=== PATIENT | male | born 1955 | race Caucasian/White ===

== ENCOUNTER 2020-06-12 08:11 | Outpatient (CLI) | payer SELFPAY ==
[2020-06-12] VITALS (10 sets, daily range): BP systolic 135–165; BP diastolic 79–91
[~2020-06-12] VITALS: Ht 167.6 cm; Wt 68.0 kg
[~2020-06-12 08:11] MED LIST: ASPI-630 PO; ASPI325T8 PO; CANA300T PO; LOSA1TAB2 PO; MELO7.5T5 PO; SITA1TAB11 PO
[2020-06-12] MEDS ORDERED: HYDR50TA6 PO (08:33)
[2020-06-12] MEDS ORDERED: FURO20TA3 PO (08:33)
[2020-06-12 09:01] LABS: BASO % 1 % (0-3); EOS # 0.1 x10^3/uL (0.0-0.7); EOS % 2 % (0-3); HEMATOCRIT 37.9 % (39.0-53.0); HEMOGLOBIN 12.8 g/dL (13.0-17.5); LYMPH # 0.8 x10^3/uL (1.0-4.8); LYMPH % 21 % (24-48); MEAN CORPUSCULAR HEMOGLOBIN 33 pg (25-35); MEAN CORPUSCULAR HGB CONC 34 g/dL (31-37); MEAN CORPUSCULAR VOLUME 97 fL (79-100); MONO # 0.4 x10^3/uL (0.0-1.1); MONO % 10 % (0-9); NEUT # 2.7 x10^3/uL (1.8-7.7); NEUT % 67 % (31-73); PLATELET COUNT 232 x10^3/uL (140-400); RED BLOOD COUNT 3.92 x10^6/uL (4.30-5.70); RED CELL DISTRIBUTION WIDTH 15.4 % (11.5-14.5)
[2020-06-12 09:09] LABS: CALCIUM 8.8 mg/dL (8.5-10.1); CREATININE 0.8 mg/dL (0.7-1.3); PROTHROMBIN TIME PATIENT 12.8 SEC (11.7-14.0)
[2020-06-12 09:14] LABS: POTASSIUM 4.6 mmol/L (3.5-5.1)
[2020-06-12] MEDS ORDERED: LIDOCAINE WITH 8.4% SOD BICARB 3 ML DISP.SYRIN. ONE (09:34)
[2020-06-12] MEDS ORDERED: LIDOCAINE WITH 8.4% SOD BICARB 3 ML DISP.SYRIN. INJ ONE (09:45)
[2020-06-12] MEDS ORDERED: ALBUMIN HUMAN 25% 100 ML IV ONE ×4 (10:08→10:45)
--- NOTE | 2020-06-12 11:45 | NUR ---
Discharge Note: LONDON CESAR Discharge instructions and discharge home medications reviewed with Patient and a copy given. All questions have been answered and understanding verbalized. Dressing site remains clean and dry. The following instructions and handouts were given: paracentesis, liver disease diet Discontinued lines and drains: Peripheral IV intact. Patient discharged to Home or Self Care with Family Member via Ambulated JS RN Addendum: 06/12/20 at 1147 by HEAVEN MEZA RN Amended: Links added.
--- NOTE | 2020-06-12 13:23 | RAD ---
Ultrasound-guided paracentesis 06/12/2020 11:20 AM Procedure: The risks and benefits of the procedure were discussed the patient. Informed consent was obtained. A timeout procedure was performed. Sonographic evaluation of the abdomen was performed demonstrating ascites . The right lower quadrant was prepped and draped using maximum sterile barrier technique. 1% lidocaine without epinephrine was administered for local anesthesia. Real-time ultrasonographic guidance was used in passing a 5 Armenian Yueh catheter into the fluid collection. 10 L of serous ascites was removed. The catheter was removed and pressure held to achieve hemostasis. A sterile dressing was applied. Impression: Successful ultrasound-guided paracentesis
== END 2020-06-12 11:40 | disposition home or self-care (01) ==
LOC: INTRAD 08:11
PROVIDERS: ATTEND Internal Medicine Gastroenterology
DX: R18.8 Other ascites (principal); F17.210 Nicotine dependence, cigarettes, uncomplicated; Z79.82 Long term (current) use of aspirin; Z79.899 Other long term (current) drug therapy
CPT/HCPCS: 36415; 49083; 80048; 85025; 85610; C1892; J3490; P9046

== ENCOUNTER 2020-07-11 06:45 | Outpatient (CLI) | payer SELFPAY ==
[2020-07-11] VITALS (8 sets, daily range): BP systolic 109–149; BP diastolic 62–94
[~2020-07-11] VITALS: Ht 167.6 cm; Wt 65.8 kg
[~2020-07-11 06:45] MED LIST changes: +FURO20TA3 PO; +HYDR50TA6 PO
[2020-07-11] MEDS ORDERED: ASPI-886 PO (07:23)
[2020-07-11] MEDS ORDERED: ALBUMIN HUMAN 25% 100 ML IV ONE ×6 (07:45→09:15)
[2020-07-11] MEDS ORDERED: LIDOCAINE WITH 8.4% SOD BICARB 3 ML DISP.SYRIN. ONE (07:49)
[2020-07-11] MEDS ORDERED: LIDOCAINE WITH 8.4% SOD BICARB 3 ML DISP.SYRIN. INJ ONE (08:45)
--- NOTE | 2020-07-11 09:17 | NUR ---
drainage has a cloudy yellow appearance Addendum: 07/11/20 at 0918 by CALLI JACINTO RN Amended: Links added.
--- NOTE | 2020-07-11 10:25 | NUR ---
Discharge Note: LONDON CESAR Discharge instructions and discharge home medications reviewed with Patient and a copy given. All questions have been answered and understanding verbalized. Patient ate breakfast with no difficulties. The following instructions and handouts were given: Paracentesis. Discontinued lines and drains: Left forearm, dressing clean dry intact. Patient discharged to home with son via ambulation to private vehicle.
--- NOTE | 2020-07-11 13:37 | RAD ---
Procedure: Ultrasound guided paracentesis Clinical Indication: Adult male with recurrent abdominal ascites Sedation: Local anesthesia only Antibiotics: None Fluoro Time: None Contrast: Not applicable Sterility: The procedure was performed in its entirety using appropriate elements of sterile technique. Consent: The procedure was explained in its entirety to the patient or the patients designated customer service representative teacher by a member of the treatment team, including a discussion of the risks, benefits and commonly accepted alternatives to the procedure, as well as the expected consequences of no therapy whatsoever. Discussion of the risks included, but was not limited to, those that are most frequent and those that are rare but possibly severe or life-threatening, as well as the possibility of unforeseen complications. Technique and Findings: Following informed consent, the patient was prepped and draped in the usual sterile fashion. Ultrasound interrogation of the abdomen revealed abdominal ascites. A hard copy ultrasound image was recorded. 1% Lidocaine was used to achieve local anesthesia over the area of interest, and a 6 Serbian Jekr-A-Hvxgfvwt catheter was advanced into the peritoneal cavity under ultrasound guidance. 9500 cc of thin yellow ascites was then withdrawn. The catheter was removed and hemostasis was achieved with manual compression. Complications: No immediate Impression: 1. Ultrasound-guided paracentesis as described
== END 2020-07-11 10:25 | disposition home or self-care (01) ==
LOC: INTRAD 06:45
PROVIDERS: ATTEND Internal Medicine Gastroenterology
DX: R18.8 Other ascites (principal); K74.60 Unspecified cirrhosis of liver; F17.210 Nicotine dependence, cigarettes, uncomplicated; Z79.82 Long term (current) use of aspirin; Z79.899 Other long term (current) drug therapy
CPT/HCPCS: 49083; C1892; J3490; P9046

== ENCOUNTER 2020-07-27 06:48 | Outpatient (CLI) | payer OTHER ==
[2020-07-27] VITALS (9 sets, daily range): BP systolic 116–145; BP diastolic 73–86
[~2020-07-27] VITALS: Ht 167.6 cm; Wt 62.6 kg
[~2020-07-27 06:48] MED LIST changes: +ASPI-886 PO
[2020-07-27 07:51] LABS: BASO # 0.1 x10^3/uL (0.0-0.2); BASO % 1 % (0-3); EOS # 0.1 x10^3/uL (0.0-0.7); EOS % 1 % (0-3); HEMATOCRIT 42.4 % (39.0-53.0); HEMOGLOBIN 14.7 g/dL (13.0-17.5); LYMPH # 0.9 x10^3/uL (1.0-4.8); LYMPH % 16 % (24-48); MEAN CORPUSCULAR HEMOGLOBIN 34 pg (25-35); MEAN CORPUSCULAR HGB CONC 35 g/dL (31-37); MEAN CORPUSCULAR VOLUME 98 fL (79-100); MONO # 0.5 x10^3/uL (0.0-1.1); MONO % 10 % (0-9); NEUT # 4.2 x10^3/uL (1.8-7.7); NEUT % 73 % (31-73); PLATELET COUNT 248 x10^3/uL (140-400); RED BLOOD COUNT 4.34 x10^6/uL (4.30-5.70); RED CELL DISTRIBUTION WIDTH 14.5 % (11.5-14.5); WHITE BLOOD COUNT 5.8 x10^3/uL (4.0-11.0)
[2020-07-27 08:14] LABS: PROTHROMBIN TIME PATIENT 13.1 SEC (11.7-14.0)
[2020-07-27] MEDS ORDERED: LIDOCAINE WITH 8.4% SOD BICARB 3 ML DISP.SYRIN. ONE (08:21)
[2020-07-27] MEDS ORDERED: LIDOCAINE WITH 8.4% SOD BICARB 3 ML DISP.SYRIN. INJ ONE (08:30)
[2020-07-27] MEDS ORDERED: ALBUMIN HUMAN 25% 100 ML IV ONE ×4 (09:00→10:15)
--- NOTE | 2020-07-27 09:42 | RAD ---
Ultrasound-guided paracentesis 07/27/2020 7:39 AM Procedure: The risks and benefits of the procedure were discussed the patient. Informed consent was obtained. A timeout procedure was performed. Sonographic evaluation of the abdomen was performed demonstrating ascites . The right lower quadrant was prepped and draped using maximum sterile barrier technique. 1% lidocaine without epinephrine was administered for local anesthesia. Real-time ultrasonographic guidance was used in passing a 5 Yoruba Yueh catheter into the fluid collection. 10 L of serous ascites was removed. The catheter was removed and pressure held to achieve hemostasis. A sterile dressing was applied. Impression: Successful ultrasound-guided paracentesis
[2020-07-27] MEDS ORDERED: ALBUMIN HUMAN 25% 100 ML IV SCH (11:00)
== END 2020-07-27 10:30 | disposition home or self-care (01) ==
LOC: INTRAD 06:48
PROVIDERS: ATTEND Internal Medicine Gastroenterology
DX: R18.8 Other ascites (principal); K74.60 Unspecified cirrhosis of liver; F17.210 Nicotine dependence, cigarettes, uncomplicated; Z79.82 Long term (current) use of aspirin
CPT/HCPCS: 36415; 49083; 85025; 85610; 85730; C1892; J3490; P9046

== ENCOUNTER 2020-08-13 07:14 | Outpatient (CLI) | payer OTHER ==
[2020-08-13] VITALS (10 sets, daily range): BP systolic 106–141; BP diastolic 70–89
[~2020-08-13] VITALS: Ht 167.6 cm; Wt 63.5 kg
[2020-08-13] MEDS ORDERED: LIDOCAINE WITH 8.4% SOD BICARB 3 ML DISP.SYRIN. ONE (08:41)
[2020-08-13] MEDS ORDERED: LIDOCAINE WITH 8.4% SOD BICARB 3 ML DISP.SYRIN. IJ ONE (09:00)
[2020-08-13] MEDS ORDERED: ALBUMIN HUMAN 25% 100 ML IV ONE ×6 (09:06→09:45)
--- NOTE | 2020-08-13 10:48 | NUR ---
Discharge Note: LONDON CESAR Discharge instructions and discharge home medications reviewed with Patient and (messi); and a copy given. All questions have been answered and understanding verbalized. The following instructions and handouts were given: Paracentesis Discontinued lines and drains: Left FA IV dc'd and tip intact. Patient discharged to home with via personal vehicle.
--- NOTE | 2020-08-13 15:28 | RAD ---
Procedure: Ultrasound guided paracentesis Clinical Indication: Adult male with recurrent abdominal ascites Sedation: Local anesthesia only Antibiotics: None Fluoro Time: None Contrast: Not applicable Sterility: The procedure was performed in its entirety using appropriate elements of sterile technique. Consent: The procedure was explained in its entirety to the patient or the patients designated call center support representative by a member of the treatment team, including a discussion of the risks, benefits and commonly accepted alternatives to the procedure, as well as the expected consequences of no therapy whatsoever. Discussion of the risks included, but was not limited to, those that are most frequent and those that are rare but possibly severe or life-threatening, as well as the possibility of unforeseen complications. Technique and Findings: Following informed consent, the patient was prepped and draped in the usual sterile fashion. Ultrasound interrogation of the abdomen revealed abdominal ascites. A hard copy ultrasound image was recorded. 1% Lidocaine was used to achieve local anesthesia over the area of interest, and a 6 Uzbek Oopo-H-Pwiibfer catheter was advanced into the peritoneal cavity under ultrasound guidance. 11.6 L of thin yellow ascites was then withdrawn. The catheter was removed and hemostasis was achieved with manual compression. Complications: No immediate Impression: 1. Ultrasound-guided paracentesis as described
== END 2020-08-13 10:51 | disposition home or self-care (01) ==
LOC: INTRAD 07:14
PROVIDERS: ATTEND Internal Medicine Gastroenterology
DX: R18.8 Other ascites (principal); I25.10 Atherosclerotic heart disease of native coronary artery without angina pectoris; E78.00 Pure hypercholesterolemia, unspecified; I10 Essential (primary) hypertension; J44.9 Chronic obstructive pulmonary disease, unspecified; F41.9 Anxiety disorder, unspecified; F32.9 Major depressive disorder, single episode, unspecified; K21.9 Gastro-esophageal reflux disease without esophagitis; G62.9 Polyneuropathy, unspecified; F17.210 Nicotine dependence, cigarettes, uncomplicated; Z98.890 Other specified postprocedural states; Z79.899 Other long term (current) drug therapy; Z72.89 Other problems related to lifestyle; Z79.82 Long term (current) use of aspirin
CPT/HCPCS: 49083; C1892; J3490; P9046

== ENCOUNTER 2020-08-20 07:39 | Outpatient (CLI) | payer OTHER ==
[~2020-08-20] VITALS: Ht 167.6 cm; Wt 59.0 kg
[2020-08-20] VITALS (8 sets, daily range): BP systolic 116–133; BP diastolic 68–90
[2020-08-20] MEDS ORDERED: LIDOCAINE WITH 8.4% SOD BICARB 3 ML DISP.SYRIN. ONE (08:05)
[2020-08-20] MEDS ORDERED: LIDOCAINE WITH 8.4% SOD BICARB 3 ML DISP.SYRIN. INJ ONE (08:30)
[2020-08-20] MEDS ORDERED: ALBUMIN HUMAN 25% 200 ML IV ONE (08:54)
[2020-08-20] MEDS ORDERED: ALBUMIN HUMAN 25% 100 ML IV ONE ×3 (09:00→09:06)
[2020-08-20] MEDS ORDERED: ALBUMIN HUMAN 25% 50 ML IV ONE (09:00)
--- NOTE | 2020-08-20 10:31 | NUR ---
Discharge Note: LONDON CESAR Discharge instructions and discharge home medications reviewed with Patient and and a copy given. All questions have been answered and understanding verbalized. The following instructions and handouts were given: Paracentesis Discontinued lines and drains: right FA IV dc'd and tip intact. Patient discharged to home with spouse via personal vehicle.
--- NOTE | 2020-08-21 12:26 | RAD ---
Ultrasound-guided paracentesis 08/21/2020 10:22 AM Procedure: The risks and benefits of the procedure were discussed the patient. Informed consent was obtained. A timeout procedure was performed. Sonographic evaluation of the abdomen was performed demonstrating ascites . The right lower quadrant was prepped and draped using maximum sterile barrier technique. 1% lidocaine without epinephrine was administered for local anesthesia. Real-time ultrasonographic guidance was used in passing a 5 Ugandan Yueh catheter into the fluid collection. 9 L of serous ascites was removed. The catheter was removed and pressure held to achieve hemostasis. A sterile dressing was applied. Impression: Successful ultrasound-guided paracentesis
== END 2020-08-20 10:10 | disposition home or self-care (01) ==
LOC: INTRAD 07:39
PROVIDERS: ATTEND Internal Medicine Gastroenterology
DX: R18.8 Other ascites (principal); I25.10 Atherosclerotic heart disease of native coronary artery without angina pectoris; E78.00 Pure hypercholesterolemia, unspecified; M19.90 Unspecified osteoarthritis, unspecified site; J44.9 Chronic obstructive pulmonary disease, unspecified; E11.42 Type 2 diabetes mellitus with diabetic polyneuropathy; F41.9 Anxiety disorder, unspecified; F32.9 Major depressive disorder, single episode, unspecified; K21.9 Gastro-esophageal reflux disease without esophagitis; F17.210 Nicotine dependence, cigarettes, uncomplicated; Z79.82 Long term (current) use of aspirin; Z79.84 Long term (current) use of oral hypoglycemic drugs; Z79.899 Other long term (current) drug therapy; Z98.890 Other specified postprocedural states; Z72.89 Other problems related to lifestyle
CPT/HCPCS: 49083; C1892; J3490; P9046

== ENCOUNTER 2020-08-27 07:30 | Outpatient (CLI) | payer OTHER ==
[~2020-08-27] VITALS: Ht 167.6 cm; Wt 59.4 kg
[2020-08-27 07:46] VITALS: BP 147/91
[2020-08-27] MEDS ORDERED: LIDOCAINE WITH 8.4% SOD BICARB 3 ML DISP.SYRIN. ONE (08:25)
[2020-08-27 08:40] VITALS: BP 121/74
[2020-08-27] MEDS ORDERED: LIDOCAINE WITH 8.4% SOD BICARB 3 ML DISP.SYRIN. INJ ONE (08:45)
[2020-08-27] MEDS ORDERED: ALBUMIN HUMAN 25% 200 ML IV ONE (08:54)
[2020-08-27 08:59] VITALS: BP 104/79
[2020-08-27] MEDS ORDERED: ALBUMIN HUMAN 25% 100 ML IV ONE ×2 (09:00)
[2020-08-27 09:10] VITALS: BP 95/68
[2020-08-27 09:30] VITALS: BP 140/78
--- NOTE | 2020-08-27 10:17 | NUR ---
pt discharged to home with family in private vehicle. PIV dcd.
--- NOTE | 2020-08-27 15:31 | RAD ---
Ultrasound-guided paracentesis 08/27/2020 1:27 PM Procedure: The risks and benefits of the procedure were discussed the patient. Informed consent was obtained. A timeout procedure was performed. Sonographic evaluation of the abdomen was performed demonstrating ascites . The right lower quadrant was prepped and draped using maximum sterile barrier technique. 1% lidocaine without epinephrine was administered for local anesthesia. Real-time ultrasonographic guidance was used in passing a 5 Luxembourgish Yueh catheter into the fluid collection. 8.6 L of serous ascites was removed. The catheter was removed and pressure held to achieve hemostasis. A sterile dressing was applied. Impression: Successful ultrasound-guided paracentesis
== END 2020-08-27 10:18 | disposition home or self-care (01) ==
LOC: INTRAD 07:30
PROVIDERS: ATTEND Internal Medicine Gastroenterology
DX: R18.8 Other ascites (principal); I10 Essential (primary) hypertension; E78.00 Pure hypercholesterolemia, unspecified; J44.9 Chronic obstructive pulmonary disease, unspecified; K21.9 Gastro-esophageal reflux disease without esophagitis; F41.9 Anxiety disorder, unspecified; F32.9 Major depressive disorder, single episode, unspecified; E11.42 Type 2 diabetes mellitus with diabetic polyneuropathy; Z79.82 Long term (current) use of aspirin; Z79.899 Other long term (current) drug therapy; Z98.890 Other specified postprocedural states; Z72.89 Other problems related to lifestyle
CPT/HCPCS: 49083; C1892; J3490; P9046

== ENCOUNTER 2020-09-03 07:36 | Outpatient (CLI) | payer OTHER ==
[~2020-09-03] VITALS: Ht 167.6 cm; Wt 59.0 kg
[2020-09-03] VITALS (7 sets, daily range): BP systolic 93–123; BP diastolic 63–80
[2020-09-03 08:07] LABS: BASO % 0 % (0-3); EOS # 0.1 x10^3/uL (0.0-0.7); EOS % 1 % (0-3); HEMATOCRIT 43.6 % (39.0-53.0); HEMOGLOBIN 14.9 g/dL (13.0-17.5); LYMPH # 0.6 x10^3/uL (1.0-4.8); LYMPH % 9 % (24-48); MEAN CORPUSCULAR HEMOGLOBIN 33 pg (25-35); MEAN CORPUSCULAR HGB CONC 34 g/dL (31-37); MEAN CORPUSCULAR VOLUME 97 fL (79-100); MONO # 0.7 x10^3/uL (0.0-1.1); MONO % 10 % (0-9); NEUT # 5.4 x10^3/uL (1.8-7.7); NEUT % 80 % (31-73); PLATELET COUNT 249 x10^3/uL (140-400); RED BLOOD COUNT 4.48 x10^6/uL (4.30-5.70); RED CELL DISTRIBUTION WIDTH 15.7 % (11.5-14.5); WHITE BLOOD COUNT 6.8 x10^3/uL (4.0-11.0)
[2020-09-03] MEDS ORDERED: LIDOCAINE WITH 8.4% SOD BICARB 3 ML DISP.SYRIN. ONE (08:12)
[2020-09-03 08:18] LABS: PROTHROMBIN TIME PATIENT 12.7 SEC (11.7-14.0)
[2020-09-03] MEDS ORDERED: ALBUMIN HUMAN 25% 200 ML IV ONE (08:30)
[2020-09-03] MEDS ORDERED: ALBUMIN HUMAN 25% 100 ML IV ONE ×2 (08:45→09:00)
[2020-09-03] MEDS ORDERED: LIDOCAINE WITH 8.4% SOD BICARB 3 ML DISP.SYRIN. INJ ONE (08:45)
--- NOTE | 2020-09-03 09:54 | NUR ---
Discharge Note: LONDON CESAR Discharge instructions and discharge home medications reviewed with Patient and a copy given. All questions have been answered and understanding verbalized. The following instructions and handouts were given: paracentesis and advised to follow up with primary care doctor (Dr. Bagley). Discontinued lines and drains: Peripheral IV intact. Patient discharged to Home or Self Care withSpousevia Wheelchair Patient was instructed to call primary care physician regarding his blood sugar medication. Patient's blood sugar was 504 by fingerstick and 502 by lab draw. Patient stated he called doctor's office and was awaiting a return call for further instructions. Primary Care doctor is Dr. Bagley in [place].
--- NOTE | 2020-09-03 16:35 | RAD ---
Ultrasound-guided paracentesis 09/03/2020 2:32 PM Procedure: The risks and benefits of the procedure were discussed the patient. Informed consent was obtained. A timeout procedure was performed. Sonographic evaluation of the abdomen was performed demonstrating ascites . The right lower quadrant was prepped and draped using maximum sterile barrier technique. 1% lidocaine without epinephrine was administered for local anesthesia. Real-time ultrasonographic guidance was used in passing a 5 Turkish Yueh catheter into the fluid collection. 7.3 L of serous ascites was removed. The catheter was removed and pressure held to achieve hemostasis. A sterile dressing was applied. Impression: Successful ultrasound-guided paracentesis
== END 2020-09-03 09:45 | disposition home or self-care (01) ==
LOC: INTRAD 07:36
PROVIDERS: ATTEND Internal Medicine Gastroenterology
DX: R18.8 Other ascites (principal); I10 Essential (primary) hypertension; E78.00 Pure hypercholesterolemia, unspecified; E11.9 Type 2 diabetes mellitus without complications; J44.9 Chronic obstructive pulmonary disease, unspecified; K21.9 Gastro-esophageal reflux disease without esophagitis; I25.10 Atherosclerotic heart disease of native coronary artery without angina pectoris; F17.210 Nicotine dependence, cigarettes, uncomplicated; Z79.899 Other long term (current) drug therapy; Z79.82 Long term (current) use of aspirin; Z79.84 Long term (current) use of oral hypoglycemic drugs; Z98.890 Other specified postprocedural states; Z72.89 Other problems related to lifestyle
CPT/HCPCS: 36415; 49083; 82947; 82962; 85025; 85610; 85730; C1892; J3490; P9046

== ENCOUNTER 2020-09-17 08:34 | Outpatient (CLI) | payer OTHER ==
[~2020-09-17] VITALS: Ht 167.6 cm; Wt 54.4 kg
[2020-09-17] VITALS (7 sets, daily range): BP systolic 91–118; BP diastolic 64–79
[~2020-09-17 08:34] MED LIST changes: +ATOR40TA59 PO; +GEMF600T8 PO; +GLIM4TAB8 PO; +LOSA1TAB19 PO; +METF10007 PO; +OXYC5TAB4 PO
[2020-09-17] MEDS ORDERED: LIDOCAINE WITH 8.4% SOD BICARB 3 ML DISP.SYRIN. ONE (09:14)
[2020-09-17] MEDS ORDERED: LIDOCAINE WITH 8.4% SOD BICARB 3 ML DISP.SYRIN. INJ ONE (09:15)
[2020-09-17] MEDS ORDERED: ALBUMIN HUMAN 25% 200 ML IV ONE (09:45)
--- NOTE | 2020-09-17 09:56 | NUR ---
ascites drainage is cloudy Addendum: 09/17/20 at 0956 by CALLI JACINTO RN Amended: Links added.
[2020-09-17] MEDS ORDERED: ALBUMIN HUMAN 25% 100 ML IV ONE ×2 (10:00)
--- NOTE | 2020-09-17 14:02 | RAD ---
Ultrasound-guided paracentesis 09/17/2020 11:58 AM Procedure: The risks and benefits of the procedure were discussed the patient. Informed consent was obtained. A timeout procedure was performed. Sonographic evaluation of the abdomen was performed demonstrating ascites . The right lower quadrant was prepped and draped using maximum sterile barrier technique. 1% lidocaine without epinephrine was administered for local anesthesia. Real-time ultrasonographic guidance was used in passing a 5 Cambodian Yueh catheter into the fluid collection. 7.3 L of serous ascites was removed. The catheter was removed and pressure held to achieve hemostasis. A sterile dressing was applied. Impression: Successful ultrasound-guided paracentesis
== END 2020-09-17 11:06 | disposition home or self-care (01) ==
LOC: INTRAD 08:34
PROVIDERS: ATTEND Internal Medicine Gastroenterology
DX: R18.8 Other ascites (principal); I25.10 Atherosclerotic heart disease of native coronary artery without angina pectoris; E78.00 Pure hypercholesterolemia, unspecified; I10 Essential (primary) hypertension; J44.9 Chronic obstructive pulmonary disease, unspecified; E11.9 Type 2 diabetes mellitus without complications; K21.9 Gastro-esophageal reflux disease without esophagitis; F41.9 Anxiety disorder, unspecified; F32.9 Major depressive disorder, single episode, unspecified; F17.210 Nicotine dependence, cigarettes, uncomplicated; Z79.82 Long term (current) use of aspirin; Z79.84 Long term (current) use of oral hypoglycemic drugs; Z79.899 Other long term (current) drug therapy; Z98.890 Other specified postprocedural states; Z72.89 Other problems related to lifestyle; Z82.49 Family history of ischemic heart disease and other diseases of the circulatory system; Z83.3 Family history of diabetes mellitus
CPT/HCPCS: 49083; C1892; J3490; P9046

== ENCOUNTER 2020-09-24 08:49 | Outpatient (CLI) | payer OTHER ==
[~2020-09-24] VITALS: Ht 167.6 cm; Wt 53.5 kg
[2020-09-24 09:10] VITALS: BP 111/77
[2020-09-24] MEDS ORDERED: LIDOCAINE WITH 8.4% SOD BICARB 3 ML DISP.SYRIN. ONE (10:10)
[2020-09-24 10:20] VITALS: BP 99/71
[2020-09-24] MEDS ORDERED: LIDOCAINE WITH 8.4% SOD BICARB 3 ML DISP.SYRIN. INJ ONE (10:30)
[2020-09-24 10:38] VITALS: BP 103/72
[2020-09-24] MEDS ORDERED: ALBUMIN HUMAN 25% 100 ML IV ONE ×4 (10:44→11:00)
[2020-09-24 10:50] VITALS: BP 85/60
--- NOTE | 2020-09-24 10:56 | NUR ---
ascites drainage was bright yellow and very cloudy Addendum: 09/24/20 at 1056 by CALLI JACINTO RN Amended: Links added.
[2020-09-24 11:05] VITALS: BP 78/56
[2020-09-24 11:20] VITALS: BP 82/56
--- NOTE | 2020-09-24 11:39 | NUR ---
Discharge Note: LONDON CESAR Discharge instructions and discharge home medications reviewed with Patient and a copy given. All questions have been answered and understanding verbalized. The following instructions and handouts were given: pleurx catheter next Thursday Discontinued lines and drains: Peripheral IV intact. Patient discharged to Home or Self Care withSpousevia Wheelchair
--- NOTE | 2020-09-24 14:37 | RAD ---
Procedure: Paracentesis. Clinical Indication: Adult male with cirrhosis and recurrent abdominal ascites Medications: Local anesthesia only. Technique and Findings: Following informed consent, the patient was prepped and draped in the usual s terile fashion. 2% lidocaine was used to achieve local anesthesia over the right quadrant of the abdo men. Ultrasound interrogation of the abdomen was performed, and demonstrated free ascites. A small sk in incision was made and a Ktzg-L-Ndhowimg catheter was advanced under ultrasound guidance into the p eritoneal cavity. 6 liters of thin bright yellow ascites was then removed. The catheter was removed a nd hemostasis was readily achieved with manual compression. The patient tolerated the procedure well and left the radiology department in stable condition. Impression: 1. Paracentesis as described. Electronically signed by: Isaías Nelson MD (09/24/2020 2:35 PM) [id number]
== END 2020-09-24 11:53 | disposition home or self-care (01) ==
LOC: INTRAD 08:49
PROVIDERS: ATTEND Internal Medicine Gastroenterology
DX: R18.8 Other ascites (principal); K74.69 Other cirrhosis of liver
CPT/HCPCS: 49083; C1892; J3490; P9046

== ENCOUNTER 2020-10-02 07:38 | Outpatient (CLI) | payer OTHER ==
[~2020-10-02] VITALS: Ht 167.6 cm; Wt 53.5 kg
[2020-10-02] VITALS (8 sets, daily range): BP systolic 75–96; BP diastolic 49–66
[~2020-10-02 07:38] MED LIST changes: +DIPH25CA58 PO; +HALO2TAB PO; +MORP100S3 PO; +SPIR100T4 PO
[2020-10-02] MEDS ORDERED: ceFAZolin SODIUM IV Push 1 GM VIAL. IVP ONE ×2 (07:45→08:30)
[2020-10-02 08:12] LABS: BASO # 0.1 x10^3/uL (0.0-0.2); BASO % 1 % (0-3); EOS # 0.1 x10^3/uL (0.0-0.7); EOS % 1 % (0-3); HEMATOCRIT 31.1 % (39.0-53.0); HEMOGLOBIN 10.5 g/dL (13.0-17.5); LYMPH # 1.6 x10^3/uL (1.0-4.8); LYMPH % 14 % (24-48); MEAN CORPUSCULAR HEMOGLOBIN 34 pg (25-35); MEAN CORPUSCULAR HGB CONC 34 g/dL (31-37); MEAN CORPUSCULAR VOLUME 99 fL (79-100); MONO # 1.1 x10^3/uL (0.0-1.1); MONO % 10 % (0-9); NEUT # 8.3 x10^3/uL (1.8-7.7); NEUT % 74 % (31-73); PLATELET COUNT 411 x10^3/uL (140-400); RED BLOOD COUNT 3.15 x10^6/uL (4.30-5.70); RED CELL DISTRIBUTION WIDTH 16.4 % (11.5-14.5); WHITE BLOOD COUNT 11.3 x10^3/uL (4.0-11.0)
[2020-10-02] MEDS ORDERED: LIDOCAINE 1%/EPI 1:100,000 20 ML VIAL. ONE (08:16)
[2020-10-02] MEDS ORDERED: MIDAZOLAM HCL/PF 2 MG/2 ML VIAL. ONE (08:31)
[2020-10-02] MEDS ORDERED: fentaNYL PF VIAL 100 MCG/2 ML VIAL ONE (08:31)
[2020-10-02] MEDS ORDERED: LIDOCAINE 1%/EPI 1:100,000 20 ML VIAL. SQ ONE (09:00)
[2020-10-02] MEDS ORDERED: fentaNYL PF VIAL 100 MCG/2 ML VIAL IV ONE (09:00)
[2020-10-02] MEDS ORDERED: MIDAZOLAM HCL/PF 2 MG/2 ML VIAL. IV ONE (09:00)
[2020-10-02] MEDS ORDERED: ALBUMIN HUMAN 25% 100 ML IV ONE ×2 (09:36→09:45)
[2020-10-02] MEDS ORDERED: IV NORMAL SALINE 250ML 250 ML IV ONE (09:45)
[2020-10-02 10:11] LABS: % BANDS 2 % (0-9); % LYMPHS 12 % (24-48); % MONOS 10 % (0-10); % SEGS 76 % (35-66); PLT ESTIMATE ADEQUATE (ADEQUATE)
--- NOTE | 2020-10-02 11:02 | NUR ---
dressing on rt abd drain is clean and dry. Brianne the tech from IR came over and instructed pt and his on how to superintendent general the drain to drain system and how to clean and care for the system. d/c instructions reviewed and questions answered. out to vehicle per w/c- to drive him home. pt has a pleurx drain system to take home.
--- NOTE | 2020-10-02 16:16 | RAD ---
Procedure: Tunneled peritoneal drainage catheter placement 10/02/2020 2:11 PM Clinical Indication: Recurrent ascites, end-stage liver disease. Patient now on hospice. Sterility: All elements of maximal sterile barrier technique including the use of a cap, mask, sterile gown, sterile gloves, large sterile sheet, appropriate hand hygiene, and 2% chlorhexidine for cutaneous antisepsis (or acceptable alternative antiseptic per current guidelines) were followed for this procedure. Consent: The procedure was explained in its entirety to the patient or the patients designated signs sales representative by a member of the treatment team, including a discussion of the risks, benefits and commonly accepted alternatives to the procedure, as well as the expected consequences of no therapy whatsoever. Discussion of the risks included, but was not limited to, those that are most frequent and those that are rare but possibly severe or life-threatening, as well as the possibility of unforeseen complications. Technique and Findings: Following informed consent, a timeout procedure was performed. The right lower quadrant was prepped and draped in the usual sterile fashion. 1% lidocaine was administered for local anesthesia. Ultrasound evaluation demonstrated large volume ascites. Sizes accessed using micropuncture technique. An 035 wire was advanced into the peritoneum. A small dermatotomy was made several centimeters anterior to the access site. The Pleurx cuff catheter was advanced from this site to the access site and delivered into the peritoneal space via a peel-away sheath. Ascites is freely aspirated. The catheter was secured in place. Sterile dressings were applied. Catheter position was confirmed fluoroscopically. No immediate complications were identified. Sedation: Conscious sedation was administered for 25 minutes. The patient was monitored by a qualified independent observer throughout the time of sedation. Please refer to the medical record for exact doses of medications utilized to achieve moderate sedation. Fluoroscopy time: 0.5 minutes Dose area product:3 Gycm2 Impression: Tunneled peritoneal drainage catheter placement as described
== END 2020-10-02 11:00 | disposition home or self-care (01) ==
LOC: INTRAD 07:38
PROVIDERS: ATTEND Internal Medicine Gastroenterology
DX: K72.90 Hepatic failure, unspecified without coma (principal); Z51.81 Encounter for therapeutic drug level monitoring; R18.8 Other ascites; I25.2 Old myocardial infarction; I12.9 Hypertensive chronic kidney disease with stage 1 through stage 4 chronic kidney disease, or unspecified chronic kidney disease; E11.22 Type 2 diabetes mellitus with diabetic chronic kidney disease; N18.2 Chronic kidney disease, stage 2 (mild); E11.42 Type 2 diabetes mellitus with diabetic polyneuropathy; E78.5 Hyperlipidemia, unspecified; F41.9 Anxiety disorder, unspecified; F32.9 Major depressive disorder, single episode, unspecified; J44.9 Chronic obstructive pulmonary disease, unspecified; F17.210 Nicotine dependence, cigarettes, uncomplicated; M19.90 Unspecified osteoarthritis, unspecified site; K21.9 Gastro-esophageal reflux disease without esophagitis; G62.9 Polyneuropathy, unspecified; E11.51 Type 2 diabetes mellitus with diabetic peripheral angiopathy without gangrene; Z79.899 Other long term (current) drug therapy; Z79.82 Long term (current) use of aspirin; Z79.84 Long term (current) use of oral hypoglycemic drugs; Z80.6 Family history of leukemia; Z83.3 Family history of diabetes mellitus; Z95.5 Presence of coronary angioplasty implant and graft; Z95.0 Presence of cardiac pacemaker; Z82.49 Family history of ischemic heart disease and other diseases of the circulatory system
CPT/HCPCS: 36415; 49418; 85007; 85025; 85610; 99152; 99153; C1729; C1892; J0690; J2250; J3490; P9046; 76942